=== PATIENT | female | born 1970 | race Caucasian/White ===

== ENCOUNTER → 2017-09-22 | Outpatient (CLI) | payer OTHER ==
[~2017-09-22] MED LIST: ALBUTEROL SULFATE 0.083% NEB 2.5 MG/3 ML AMPUL NEB ONE
--- NOTE | 2017-09-22 17:07 | Pulmonary Function Test ---
Pulmonary Function Test Date of Procedure:: 09/22/17 INDICATION:: Shortness of breath Referring Provider: Ifeanyi Mendieta Phone Triage Specialist: Mary Anne Ferreira [employer] OPERATOR - Report Spirometry: FVC 3.05 L 81% postbronchodilator 3.07 L 82% FEV1 2.43 L 79% postbronchodilator 2.59 L 85% FEV1/FVC % 80 postbronchodilator 85 predicted 83 FEF 25-75% 2.60 L 78% postbronchodilator 3.68 L 110% Impression: Minimal obstructive ventilatory defect is inferred by the changes in FEF 25-75% there appears to be a good response to bronchodilator therapy.
== END ==
LOC: RT 12:15
PROVIDERS: ATTEND Physician Assistant
DX: R06.02 Shortness of breath (principal); I10 Essential (primary) hypertension
CPT/HCPCS: 94060